=== PATIENT | male | born 1960 | race Caucasian/White ===

== ENCOUNTER 2020-06-19 17:15 | Outpatient (REF) | payer OTHER, SELFPAY ==
[2020-06-20 08:23] LABS: COVID-19 Test Negative (Negative)
== END 2020-06-19 17:16 | disposition home or self-care (01) ==
LOC: HO.LAB 17:15
PROVIDERS: PCP Internal Medicine; Visit Provider Internal Medicine
DX: Z20.828 Contact with and (suspected) exposure to other viral communicable diseases (principal)
CPT/HCPCS: 87635

== ENCOUNTER 2020-08-01 08:34 | Outpatient (REF) | payer OTHER, SELFPAY ==
[2020-08-01 08:53] LABS: COVID-19 Test Negative (Negative); IDNOW Serial# 55D5AD1C
== END 2020-08-01 08:35 | disposition home or self-care (01) ==
LOC: HO.EMPCOV 08:34
PROVIDERS: Visit Provider Internal Medicine
DX: Z20.828 Contact with and (suspected) exposure to other viral communicable diseases (principal)
CPT/HCPCS: 87635; C9803

== ENCOUNTER → 2020-08-15 14:02 | Outpatient (BNVA) | payer OTHER, SELFPAY | PROVIDERS: PCP Internal Medicine; Visit Provider Orthopaedic Surgery | DX: M17.11 Unilateral primary osteoarthritis, right knee (principal) | CPT/HCPCS: 20610; J1040 ==

== ENCOUNTER 2020-08-20 06:52 | Outpatient (REF) | payer OTHER, SELFPAY ==
[2020-08-20 07:18] LABS: COVID-19 Test Negative (Negative); IDNOW Serial# 55D5AD1C
== END 2020-08-20 06:53 | disposition home or self-care (01) ==
LOC: HO.LAB 06:52
PROVIDERS: Visit Provider Internal Medicine
DX: Z20.828 Contact with and (suspected) exposure to other viral communicable diseases (principal)
CPT/HCPCS: 87635; C9803

== ENCOUNTER 2024-03-04 09:11 | Outpatient (REF) | payer MEDICARE, SELFPAY ==
[2024-03-04 10:24] LABS: MANUAL DIFF FLAG NO
[2024-03-04 10:35] LABS: Basophils Absolute Auto 0.1 X10*3/uL (0.0-0.2); Basophils Percent Auto 0.7 % (0-2); Eosinophils Absolute Auto 0.3 X10*3/uL (0.0-0.4); Eosinophils Percent Auto 3.5 % (0-4); Hematocrit 44.3 % (42.0-52.0); Hemoglobin 14.9 g/dl (14.0-18.0); Imm Gran Abs Auto 0.03 X10*3/uL (0.00-0.03); Imm Gran Pct Auto 0.4 % (0.0-0.4); Lymphocytes Absolute Auto 2.2 X10*3/uL (1.2-4.9); Lymphocytes Percent Auto 31.4 % (20-40); Mean Corpuscular HGB Conc 33.6 g/dl (31.0-36.0); Mean Corpuscular Hemoglobin 29.3 pg (27.0-33.0); Mean Corpuscular Volume 87.2 fL (80.0-98.0); Mean Platelet Volume 9.8 fL (9.4-12.4); Monocytes Absolute Auto 0.6 X10*3/uL (0.1-1.2); Monocytes Percent Auto 8.4 % (2-11); Neutrophils Percent Auto 55.6 % (45-73); Platelet Count 278 X10*3/uL (160-400); Red Blood Count 5.08 X10*6/uL (4.60-5.80); White Blood Count 7.1 X10*3/uL (4.8-10.8)
[2024-03-04 11:22] LABS: Alanine Aminotransferase 17 U/L (0-40); Albumin Level 4.1 g/dL (3.5-5.0); Alkaline Phosphatase 74 U/L (39-117); Anion Gap 8 (12-20); Aspartate Amino Transferase 21 U/L (5-37); Bilirubin Total 0.8 mg/dL (0.0-1.0); Blood Urea Nitrogen 22 mg/dL (9-16); Calcium 9.6 mg/dL (8.4-10.2); Carbon Dioxide 29 mmol/L (22-29); Chloride 107 mmol/L (96-108); Cholesterol 206 mg/dL (<200); Estimated Glomerular Filt Rate > 60; Glucose Random 88 mg/dL (60-115); HDL Cholesterol 57 mg/dL (>40); LDL Cholesterol Calculated 137 mg/dL (<100); Sodium 140 mmol/L (135-145); Total Protein 6.6 g/dL (6.5-8.0); Triglycerides 60 mg/dL (<150)
[2024-03-07 09:59] LABS: Free Prostate Spec Ag 0.6 ng/mL; Percent Free Prostate Spec Ag 10 % (calc) (>25); Prostate Specific Ag Total 5.8 ng/mL (< OR = 4.0)
== END 2024-03-04 09:12 | disposition home or self-care (01) ==
LOC: HO.HMGCLDS 09:11
PROVIDERS: PCP Internal Medicine; Referring Provider Urology; Visit Provider Internal Medicine
DX: N40.1 Benign prostatic hyperplasia with lower urinary tract symptoms (principal); Z87.438 Personal history of other diseases of male genital organs; E78.5 Hyperlipidemia, unspecified; R97.20 Elevated prostate specific antigen [PSA]
CPT/HCPCS: 36415; 80053; 80061; 84154; 85025

== ENCOUNTER 2025-02-22 08:57 | Outpatient (REF) | payer MEDICARE, SELFPAY ==
--- OUTSIDE RECORDS SUMMARY | 2025-02-22 09:36 | XMS_ITS | Clinical Summary ---
Author Organization [facility] Address [address] [place] [id number] Care Team Providers Care Cripple Cutter Name Role Phone Shon Hyman MD Primary Care Provider [phone] Allergies Active Allergy Reactions Criticality Noted Date Comments Tamsulosin 09/05/2021 Medications Medication Sig Dispensed Refills Start Date End Date Status lisinopril (PRINIVIL,ZESTRIL) tablet 2.5 mg 0 06/11/2021 Active finasteride (PROSCAR) 5 MG tablet 0 07/14/2021 Active Active Problems No known active problems Family History Medical History Relation Name Comments Cancer Brother Hypertension Brother Hypertension Father Cancer Mother Hypertension Mother Relation Name Status Comments Brother Father Mother Social History Tobacco Use Types Packs/Day Years Used Date Smoking Tobacco: Never Assessed Sex and Gender Information Value Date Recorded Sex Assigned at Not on file Gender Identity Not on file Sexual Orientation Not on file Job Start Date Occupation Industry Not on file Not on file Not on file Last Filed Vital Signs Vital Sign Reading Time Taken Comments Blood Pressure - - Pulse - - Temperature - - Respiratory Rate - - Oxygen Saturation - - Inhaled Oxygen Concentration - - Weight 95.3 kg (210 lb) 08/01/2021 1:54 PM EST Height 188 cm (6' 2 ) 08/01/2021 1:54 PM EST Body Mass Index 26.96 08/01/2021 1:54 PM EST Plan of Treatment Health Maintenance Due Date Last Done Comments Hepatitis C Screening 1959 Depression Screening 1971 BMI Counseling 1977 Preventative Health Evaluation 1977 DTap / Tdap / Td (1 - Tdap) 1978 Colon Cancer Screening (Colonoscopy) 02/24/2004 Fall Risk Assessment 02/24/2024 Pneumococcal Vaccine (1 of 1 - PCV) 02/24/2024 COVID-19 Vaccine (3 - 2023-2 5 season) 2024 09/17/2020, 08/27/2020 Influenza Vaccine (Season Ended) 2025 RSV Adult > 60+ Yrs or (1 - 1-dose 75+ series) 2034 Shingrix-Zoster Vaccine Completed 11/09/19, 06/05/2020 Hepatitis B Vaccines Aged Out No long er eligible based on patient's age to complete this topic Pneumococcal Vaccine Aged Out No long er eligible based on patient's age to complete this topic RSV Ped < 20 months Aged Out No longe r eligible based on patient's age to complete this topic Care Teams Cripple Cutter Relationship Specialty Start Date End Date Shon Hyman MD [address] [place] [address] PCP - General Internal Medicine 07/29/21
[2025-02-22 10:16] LABS: MANUAL DIFF FLAG NO
[2025-02-22 10:32] LABS: Basophils Absolute Auto 0.1 X10*3/uL (0.0-0.2); Basophils Percent Auto 0.9 % (0-2); Eosinophils Absolute Auto 0.2 X10*3/uL (0.0-0.4); Eosinophils Percent Auto 3.1 % (0-4); Hemoglobin 15.1 g/dl (14.0-18.0); Imm Gran Abs Auto 0.02 X10*3/uL (0.00-0.03); Imm Gran Pct Auto 0.3 % (0.0-0.4); Lymphocytes Absolute Auto 1.9 X10*3/uL (1.2-4.9); Mean Corpuscular HGB Conc 34.3 g/dl (31.0-36.0); Mean Corpuscular Hemoglobin 29.8 pg (27.0-33.0); Mean Platelet Volume 9.9 fL (9.4-12.4); Monocytes Absolute Auto 0.5 X10*3/uL (0.1-1.2); Monocytes Percent Auto 8.3 % (2-11); Neutrophils Absolute Auto 3.1 x10*3/uL (2.0-8.3); Neutrophils Percent Auto 54.4 % (45-73); Platelet Count 248 X10*3/uL (160-400); Red Blood Count 5.06 X10*6/uL (4.60-5.80); Red Cell Distribution Width 13.2 % (11.0-16.0); White Blood Count 5.8 X10*3/uL (4.8-10.8)
[2025-02-22 10:36] LABS: Prothrombin Time 11.2 SEC (10.9-12.4)
[2025-02-22 10:38] LABS: Partial Thromboplastin Time 31.1 SEC (26.0-36.8)
[2025-02-22 11:42] LABS: Alanine Aminotransferase 18 U/L (0-40); Albumin Level 4.3 g/dL (3.5-5.0); Alkaline Phosphatase 73 U/L (39-117); Anion Gap 11 (12-20); Aspartate Amino Transferase 27 U/L (5-37); Bilirubin Total 0.9 mg/dL (0.0-1.0); Blood Urea Nitrogen 25 mg/dL (9-16); Calcium 9.3 mg/dL (8.4-10.2); Carbon Dioxide 26 mmol/L (22-29); Chloride 107 mmol/L (96-108); Cholesterol 208 mg/dL (<200); Estimated Glomerular Filt Rate > 60; Glucose Random 83 mg/dL (60-115); HDL Cholesterol 55 mg/dL (>40); LDL Cholesterol Calculated 141 mg/dL (<100); Potassium 3.8 mmol/L (3.3-5.1); Sodium 140 mmol/L (135-145); Thyroid Stimulating Hormone 1.25 uIU/mL (0.32-4.0); Total Protein 6.7 g/dL (6.5-8.0); Triglycerides 61 mg/dL (<150)
== END 2025-02-22 08:58 | disposition home or self-care (01) ==
LOC: HO.HMGCLDS 08:57
PROVIDERS: PCP Internal Medicine; Visit Provider Internal Medicine
DX: I10 Essential (primary) hypertension (principal); N40.0 Benign prostatic hyperplasia without lower urinary tract symptoms; K21.9 Gastro-esophageal reflux disease without esophagitis; E78.00 Pure hypercholesterolemia, unspecified; R23.3 Spontaneous ecchymoses
CPT/HCPCS: 36415; 80053; 80061; 84443; 85025; 85610; 85730

== ENCOUNTER 2025-05-22 12:29 | Day surgery (SDC) | payer MEDICARE, SELFPAY ==
[2025-05-18 15:16] VITALS: BMI 25.0
--- OUTSIDE RECORDS SUMMARY | 2025-05-19 14:09 | XMS_ITS ---
Author Name [facility] Organization Unknown History of Medication Use Medication Directions Dispensed Refills Start Date End Date Stat Kenalog 40 mg/mL suspension for injection Take 1 mL by injection route. 11/12/2023 active lisinopril 2.5 mg tablet TAKE 1 TABLET BY MOUTH ONCE DAILY 11/12/2023 completed finasteride 5 mg tablet TAKE 1 TABLET BY MOUTH ONCE DAILY active Problems Problem Status Onset Date Problem Type Date of Resoluti on Source Pain of knee region active 2024-01-21 ProblemAct ENS_AONECT Encounters Encounter Type Encounter Reason Primary Diagnosis Location Date Ambulatory [facility] [place] 04/21/2024 Ambulatory [facility] [place] 11/30/2023 Ambulatory [facility] [place] 11/11/2023 Ambulatory [facility] [place] 11/11/2023 Ambulatory [facility] [place] 11/11/2023 Ambulatory [facility] [place] 10/19/2023 Ambulatory [facility] [place] 10/19/2023 Ambulatory [facility] [place] 10/19/2023
--- OUTSIDE RECORDS SUMMARY | 2025-05-19 14:09 | XMS_ITS | Clinical Summary ---
Author Organization [facility] Address [address] [place] [id number] Care Team Providers Care Resource Economist Name Role Phone Shon Hyman MD Primary Care Provider [phone] Allergies Active Allergy Reactions Criticality Noted Date [...] - PCV) 02/24/2024 COVID-19 Vaccine (3 - 2024-2 6 season) 2025 09/17/2020, 08/27/2020 Influenza Vaccine (#1) 2025 RSV Adult > 60+ Yrs or (1 - 1-dose 75+ series) 2034 Shingrix-Zoster Vaccine Completed 11/09/19, 06/05/2020 Hepatitis B Vaccines Aged Out No long er eligible based on patient's age to complete this topic RSV Ped < 20 months Aged Out No longe r eligible based on patient's age to complete this topic Care Teams Resource Economist Relationship Specialty Start Date End Date Shon Hyman MD [facility] [place] [address] PCP - General Internal Medicine 07/29/21
--- NOTE | 2025-05-19 14:32 | HO.ANESPROP2 ---
Documented by User: Rita Batista NP 05/19/25 14:34 HPI - Anesthesia Eval Consult details Narrative: 65 yr old male for upper endoscopy PMFSH Active Problems Active Problems: All Active Problems (Updated 05/18/25 @ 15:18 by Marilee Jimenez RN) Primary osteoarthritis of right knee (Acute) Past Medical History Medical History BPH (benign prostatic hyperplasia) HTN (hypertension) Surgical History Surgical History History of prostate surgery Hx of prostate biopsy Hx of appendectomy Hx of tonsillectomy Hx of arthroscopic knee surgery H/O colonoscopy Social History Social History Patient Tobacco Use Status: Never used Tobacco Use of substances other than those prescribed or required for medical reasons: No Are you DNR?: No Advance Directives: No Advance Directives Information Provided: Yes Poor oral hygiene: No Current occupational status: employed Current occupation: [employer] - [employer] Meds Allergies Allergy/AdvReac Type Severity Reaction Status Date / Time No Known Allergies Allergy Unverified 05/17/20 16:11 Home Medications ?Medication ?Instructions ?Recorded ?Confirmed ?Last Taken ?Type celecoxib 200 mg capsule (Celebrex) 200 mg PO DAILY PRN Pain 05/18/25 05/18/25 Unknown History finasteride 5 mg tablet 5 mg PO DAILY 05/18/25 05/18/25 05/22/25 History lisinopril 2.5 mg tablet 2.5 mg PO DAILY 05/18/25 05/18/25 Unknown History Exam Height,Weight and Vital Signs: Height 6 ft 2 in Weight 88.451 kg Pertinent Lab Results Pertinent Lab Results: Laboratory Tests 02/22/25 09:08 WBC 5.8 RBC 5.06 Hgb 15.1 Hct 44.0 Plt Count 248 Sodium 140 Potassium 3.8 BUN 25 H Creatinine 0.94 Documented by User: Gemma Salazar MD 05/22/25 13:11 PMF Past Medical History Medical History BPH (benign prostatic hyperplasia) HTN (hypertension) Family History Family history of problems with anesthesia: No Surgical History Surgical History History of prostate surgery Hx of prostate biopsy Hx of appendectomy Hx of tonsillectomy Hx of arthroscopic knee surgery H/O colonoscopy History of Problems with Anesthesia: No Social History Social History Patient Tobacco Use Status: Never used Tobacco Use of substances other than those prescribed or required for medical reasons: No Are you DNR?: No Advance Directives: No Advance Directives Information Provided: Yes Poor oral hygiene: No Current occupational status: employed Current occupation: [employer] - [employer] Meds Allergies Allergy/AdvReac Type Severity Reaction Status Date / Time No Known Allergies Allergy Unverified 05/17/20 16:11 Home Medications ?Medication ?Instructions ?Recorded ?Confirmed ?Last Taken ?Type celecoxib 200 mg capsule (Celebrex) 200 mg PO DAILY PRN Pain 05/18/25 05/18/25 Unknown History finasteride 5 mg tablet 5 mg PO DAILY 05/18/25 05/18/25 05/22/25 History lisinopril 2.5 mg tablet 2.5 mg PO DAILY 05/18/25 05/18/25 Unknown History Exam Airway Mallampati Class: II TM Dist: >3cm Neck ROM: Full Heart: rrr Lungs: cta Assessment and Plan Assessment Anesthesia Assessment: Anesthesia Plan Discussed and Chart Reviewed Final Anesthetic Review Family History of Problems with Anesthesia: No History of Problems with Anesthesia: No NPO: Yes ASA Class: II Final Preanesthetic Review: No Changes in Pt Med Stat, Meds/Allgs Chart Reviewed, Consent Obtained/Reviewed and Anes Risks/Benef Reviewed Patient Risk: Low Procedure Risk: Low Anesthetic Plan Anesthetic Plan: MAC: and Agree w/ Assess. and Plan Disposition: Standard PACU
[2025-05-22 13:00] VITALS: BMI 24.6
[2025-05-22 13:08] VITALS: BP 130/72; PULSE 52; RESP 16; TEMP 36.6; O2SAT 96
[2025-05-22] MEDS: Lactated Ringers 1,000 ML 100 ML IVCONT (13:15)
[2025-05-22 15:28] VITALS: BP 105/54; PULSE 57; RESP 16; TEMP 36.4; O2SAT 96
--- NOTE | 2025-05-22 15:28 | PM.OP ---
Brief Operative Note Date of Service: 05/22/25 Pre-op diagnosis: GERD Post-op diagnosis: other (Same, small hiatal hernia) Procedure: EGD with biopsies Surgeon: Jerry Lafleur MD Anesthesia: MAC Was an Market Research Worker used for this Procedure?: No Estimated blood loss (mL): 2.0 Pathology: other (A. EG Junction at 40cm) Condition: stable Disposition: PACU
[2025-05-22 15:37] VITALS: BP 117/57; PULSE 57; RESP 16; TEMP 36.4; O2SAT 96
--- NOTE | 2025-05-23 01:03 | OP_ITS ---
DATE OF SERVICE: 05/22/2025 SURGEON: Jerry Lafleur MD INDICATIONS: The patient presents for evaluation of intermittent gastroesophageal reflux and occasional dysphagia. Full consent has been obtained from him for this, including risks of bleeding and perforation. PREOPERATIVE DIAGNOSIS: POSTOPERATIVE DIAGNOSIS: PROCEDURE PERFORMED: Esophagogastroduodenoscopy with biopsies. ESTIMATED BLOOD LOSS: COMPLICATIONS: ANESTHESIA: Medication used, monitored anesthesia care. ASSISTANTS: SPECIMENS: PREOPERATIVE DIAGNOSES: Gastroesophageal reflux and occasional dysphagia. POSTOPERATIVE DIAGNOSES: Gastroesophageal reflux and occasional dysphagia, small hiatal hernia. DESCRIPTION OF PROCEDURE: The patient was placed in the left lateral decubitus position. The Olympus video gastroscope was passed in the posterior oropharynx and upper esophagus under direct vision. The scope was passed slowly to the distal esophagus. The gastroesophageal junction appeared at 40 cm. There was very slight irregularity consistent with reflux but no definitive evidence of Harman's mucosa. There was no esophagitis. There was no sign of any esophageal stricture nor ring. The scope easily entered the stomach. There was a small hiatal hernia. The scope was advanced to the pylorus, and the duodenum was cannulated to the descending portion. The duodenum including the bulb appeared normal without mass or ulceration. The scope was withdrawn back in the stomach. The gastric antrum and body appeared normal with good peristalsis. The scope was retroflexed visualizing the proximal stomach carefully, which appeared normal without any mass or ulceration. The scope was straightened and withdrawn back to the esophagus. Multiple biopsies were obtained at the EG junction at 40 cm. Proximal to this, the esophageal mucosa appeared normal. The esophagus was somewhat mildly tortuous but otherwise normal in appearance. There was no evidence of any retained secretions nor food in the esophagus. The scope was withdrawn from the patient. He tolerated the procedure well and was returned to the recovery area in stable condition. IMPRESSION: Small hiatal hernia, gastroesophageal reflux, rule out Harman's esophagus. PLAN: The results of the biopsies will be checked. If there happens to be Harman's esophagus without dysplasia, I would recommend a repeat upper endoscopy in 3 years. Of note, he reports that he did use some omeprazole earlier this year with relief of reflux symptoms. After about 2 weeks he stopped that and has not had any problems since then. He denies any ongoing issues with significant reflux or dysphagia. At this point, I do not think he needs to be on any chronic medication unless his symptoms require that in regard to increasing symptoms of reflux. I suspect the occasional dysphagia might be related to some esophageal spasm and dysmotility in relation to reflux. If things are stable he will see me otherwise on a p.r.n. basis. I did advise him to call me if he develops any worsening reflux and/or dysphagia. MD MIKE Woods/FLORIDALMA / [id number]
== END 2025-05-22 16:01 | disposition home or self-care (01) ==
PROVIDERS: PCP Internal Medicine; Visit Provider Internal Medicine
PROC: 0DJ08ZZ Inspection of Upper Intestinal Tract, Via Natural or Artificial Opening Endoscopic (ICD-10-PCS; CPT 43235; principal; 2025-05-22 13:50)
DX: K21.9 Gastro-esophageal reflux disease without esophagitis (principal); Z80.0 Family history of malignant neoplasm of digestive organs; Z83.79 Family history of other diseases of the digestive system; R13.10 Dysphagia, unspecified; K44.9 Diaphragmatic hernia without obstruction or gangrene; I10 Essential (primary) hypertension; N40.0 Benign prostatic hyperplasia without lower urinary tract symptoms; Z79.899 Other long term (current) drug therapy; Z98.890 Other specified postprocedural states
CPT/HCPCS: 43239; 88305; 88313; J2003; J2704; J3010